=== PATIENT | male | born 1975 | race Caucasian/White ===

== ENCOUNTER 2020-06-13 14:46 | Inpatient (IN) | payer BC ==
--- NOTE | 2020-06-13 16:06 | PCM.HP ---
H&P History of Present Illness - General Date of Service: 06/13/20 Admit Problem/Dx: Admission Diagnosis/Problem Admission Diagnosis/Problem Acute renal failure Source of Information: Patient, Provider - History of Present Illness Initial Comments - Free Text/Narative: 44-year-old gentleman with a history of morbid obesity, type 2 diabetes,sleep apnea on CPAP, hypertension presented to the clinic with nausea. Was found to have acute renal failure and was referred to hospital admission. He says that in the past few month he gained about 50 pounds. developed elevated bsugars 300-500. associated with nausea last week his metformin was increased, added lantus no abd pain no sob, no cp, no fever - Related Data Allergies/Adverse Reactions: Allergies Allergy/AdvReac Type Severity Reaction Status Date / Time No Known Allergies Allergy Verified 11/01/14 15:44 Home Medications: Home Meds Insulin Detemir [Levemir] 10 unit SUBCUT BEDTIME #1 pen 11/03/14 [Rx] metFORMIN [Glucophage] 1,000 mg PO BIDMEALS #60 tablet 11/03/14 [Rx] Docusate Sodium 100 mg PO DAILY 06/13/20 [History] Ferrous Sulfate [Feosol] 325 mg PO DAILY 06/13/20 [History] Levothyroxine [Synthroid] 50 mcg PO ACBREAKFAST 06/13/20 [History] Multivitamin with Minerals [Multiple Vitamin] 1 tab PO DAILY 06/13/20 [History] Phentermine HCl 30 mg PO DAILY 06/13/20 [History] Rosuvastatin Calcium 40 mg PO BEDTIME 06/13/20 [History] Topiramate [Topamax] 50 mg PO BID 06/13/20 [History] hydroCHLOROthiazide [Hydrochlorothiazide] 25 mg PO DAILY 06/13/20 [History] lisinopriL [Lisinopril] 40 mg PO DAILY 06/13/20 [History] methocarbamoL [Methocarbamol] 750 mg PO QID PRN 06/13/20 [History] Past Medical History HEENT History: Reports: Impaired Vision Other HEENT History: contacts Cardiovascular History: Reports: High Cholesterol, Hypertension, SOB on Exertion Respiratory History: Reports: Sleep Apnea, SOB Gastrointestinal History: Reports: None Genitourinary History: Reports: Acute Renal Failure Musculoskeletal History: Reports: Back Pain, Chronic Psychiatric History: Reports: None Endocrine/Metabolic History: Reports: Diabetes, Type II, Hypothyroidism, Obesity/BMI 30+ Hematologic History: Reports: Anemia, Iron Deficiency Oncologic (Cancer) History: Reports: None Dermatologic History: Reports: None - Infectious Disease History Infectious Disease History: Reports: Chicken Pox, Influenza - Past Surgical History Other HEENT Surgeries/Procedures: wisdom teeth Social & Family History - Family History Family Medical History: No Pertinent Family History - Tobacco Use Tobacco Use Status *Q: Former Tobacco User Used Tobacco, but Quit: Yes Month/Year Tobacco Last Used: 03/2000 - Caffeine Use Caffeine Use: Reports: Coffee, Energy Drinks - Recreational Drug Use Recreational Drug Use: No H&P Review of Systems - Review of Systems: Review Of Systems: See Below General: Reports: Malaise, Weakness. Denies: Fever Gastrointestinal: Reports: Diarrhea, Nausea. Denies: Abdominal Pain, Vomiting Genitourinary: Denies: Dysuria Psychiatric: Denies: Confusion Neurological: Reports: Weakness Exam - Exam Exam: See Below - Vital Signs Vital Signs: Last Vital Signs Temp 97.3 F 06/13/20 14:47 Pulse 122 H 06/13/20 14:47 Resp 16 06/13/20 14:47 BP 126/78 06/13/20 14:47 Pulse Ox 98 06/13/20 14:47 Weight: 403 lb 12.8 oz - Exam General: Alert, Oriented, Other (morbidly obese) Neck: Supple Lungs: Clear to Auscultation, Normal Respiratory Effort Cardiovascular: Regular Rate, Regular Rhythm GI/Abdominal Exam: Normal Bowel Sounds, Soft, Non-Tender Extremities: No Pedal Edema Skin: Warm, Dry Neuro Extensive - Mental Status: Alert, Oriented x3 Psychiatric: Alert, Normal Affect, Normal Mood - Patient Data Lab Results Last 24 hrs: Results for RESHMA MAR ( ) as of 06/13/2020 15:46 Ref. Range 06/13/2020 11:22 BUN Latest Ref Range: 7 - 18 mg/dL 66 (H) Creatinine Latest Ref Range: 0.8 - 1.3 mg/dL 2.4 (H) Sodium Latest Ref Range: 136 - 145 mmol/L 131 (L) Potassium Latest Ref Range: 3.5 - 5.1 mmol/L 4.9 Chloride Latest Ref Range: 98 - 107 mmol/L 94 (L) CO2 Latest Ref Range: 21.0 - 32.0 mmol/L 21.3 SERUM GLUCOSE Latest Ref Range: 70 - 99 mg/dL 517 (HH) Calcium Latest Ref Range: 8.5 - 10.1 mg/dL 9.7 ANION GAP Latest Ref Range: 5.0 - 13.0 mmol/L 15.7 (H) GFR Calculated Latest Units: mL/min/1.73 sq m 30 Results for RESHMA MAR ( ) as of 06/13/2020 15:46 Ref. Range 06/13/2020 11:22 WBC Latest Ref Range: 3.60 - 11.00 K/uL 12.78 (H) RBC Latest Ref Range: 4.40 - 5.90 M/uL 5.36 Hemoglobin Latest Ref Range: 13.0 - 18.0 g/dL 14.6 Hematocrit Latest Ref Range: 40.0 - 52.0 % 42.3 MCV Latest Ref Range: 80.0 - 100.0 fL 78.9 (L) MCH Latest Ref Range: 26.0 - 34.0 pg 27.2 MCHC Latest Ref Range: 32.0 - 36.0 g/dL 34.5 RDW Latest Ref Range: 37.0 - 50.0 fL 36.9 (L) Platelets Latest Ref Range: 150 - 440 K/L 324 MPV Latest Ref Range: 8.0 - 13.0 fL 13.0 - Problem List (1) Hyperglycemia SNOMED Code(s): 56166162 ICD Code: R73.9 - HYPERGLYCEMIA, UNSPECIFIED Status: Acute Current Visit: Yes (2) Diarrhea SNOMED Code(s): 87197526 ICD Code: R19.7 - DIARRHEA, UNSPECIFIED Status: Acute Current Visit: Yes (3) Diabetes mellitus SNOMED Code(s): 89766350 ICD Code: E11.9 - TYPE 2 DIABETES MELLITUS WITHOUT COMPLICATIONS Status: Acute Priority: High Current Visit: No Onset Date: 11/01/14 (4) Hypertension SNOMED Code(s): 02976859 ICD Code: I10 - ESSENTIAL (PRIMARY) HYPERTENSION Status: Chronic Priority: High Current Visit: No Problem List Initiated/Reviewed/Updated: Yes Orders Last 24hrs: Active Orders 24 hr Category Date Time Status Admission Status [Patient Status] [ADT] Routine ADT 06/13/20 15:13 Active Regular Diet [DIET] Diet 06/13/20 Dinner Active Assessment/Plan Comment:: 44-year-old gentleman with a history of type 2 diabetes on metformin presented with nausea. Noted to have acute renal failure Likely secondary to dehydration Will hydrate well Hold MICHELLE inhibitor, metformin, hydrochlorothiazide, phentermine Follow electrolytes and renal function Hypertension Hold lisinopril now Well monitor Nausea Might relate to renal failure Well hydrate Symptomatic treatment Diarrhea Check C. difficile Check routine stool culture Diabetes, type II Uncontrolled Increase Levemir Use supplemental insulin as needed Hold metformin Leukocytosis Likely related to nausea Possibly due to diarrhea Check C. difficile Check urine analysis and culture hypothyroidism Treat with Synthroid DVT prophylaxis with subcutaneous heparin
[2020-06-13] MEDS ORDERED: 50% Dextrose in Water 50 ML Syringe IVPUSH PRN (16:12)
[2020-06-13] MEDS ORDERED: Ondansetron 4 MG/2 ML SDV IVPUSH PRN (16:13)
[2020-06-13] MEDS ORDERED: Sodium Chloride 0.9% 10 ML Syringe FLUSH PRN (16:13)
[2020-06-13] MEDS ORDERED: Acetaminophen 325 MG Tab PO PRN (16:13)
[2020-06-13] MEDS ORDERED: Temazepam 15 MG Cap PO PRN (16:13)
[2020-06-13] MEDS ORDERED: Ondansetron 4 MG Tab.DIS PO PRN (16:13)
[2020-06-13] MEDS: Sodium Chloride 0.9% 1,000 ML IV SCH ×2 (16:21→19:55)
[2020-06-13] MEDS ORDERED: Insulin Lispro 100 Units/ML 3 ML Vial SUBCUT ONE ×2 (17:12→18:50)
[2020-06-13] MEDS ORDERED: Glucagon,Human Recombinant 1 MG Vial IM PRN (17:12)
[2020-06-13] MEDS ORDERED: 50% Dextrose in Water 50 ML Syringe IV PRN (17:12)
[2020-06-13] MEDS: Insulin Lispro 100 Units/ML 3 ML Vial SUBCUT SCH ×2 (17:18→21:29)
[2020-06-13] MEDS ORDERED: Sodium Chloride 0.9% 500 ML IV ONE (19:30)
[2020-06-13] MEDS ORDERED: Insulin Glarg,Human.Rec.Analog 100 Unit/ML SUBCUT SCH (21:00)
[2020-06-13] MEDS: Topiramate 25 MG Tab PO SCH (21:35)
[2020-06-13] MEDS: Heparin Sodium 5,000 Units/ML Vial SUBCUT SCH (21:35)
[2020-06-14] MEDS: Sodium Chloride 0.9% 1,000 ML IV SCH ×3 (00:53→11:12)
[2020-06-14 04:25] VITALS: PULSE 81
[2020-06-14] MEDS: Heparin Sodium 5,000 Units/ML Vial SUBCUT SCH (05:47)
[2020-06-14] MEDS ORDERED: Levothyroxine 50 MCG Tab PO SCH (06:00)
[2020-06-14 06:26] LABS: ANION GAP 15.6 mEq/L (7-13)
[2020-06-14] MEDS: Topiramate 25 MG Tab PO SCH (08:55)
[2020-06-14] MEDS ORDERED: Multivitamins,Therapeutic Tab PO SCH (09:00)
[2020-06-14] MEDS ORDERED: Ferrous Sulfate 325 MG Tab PO SCH (09:00)
[2020-06-14] MEDS: Insulin Lispro 100 Units/ML 3 ML Vial SUBCUT SCH (09:04)
--- NOTE | 2020-06-14 11:06 | PCM.DCSUM1 ---
Discharge Summary - Hospital Course Free Text/Narrative:: 44-year-old gentleman with a history of type 2 diabetes on metformin presented with nausea. found to have BSs 500s, JACE with cr. 2,4 Noted to have acute renal failure Likely secondary to dehydration renal failure did not improve wiht hydration (200cc/h and boluses) Hold MICHELLE inhibitor, metformin, hydrochlorothiazide, phentermine cr. upto 3.6 uo: 300cc in the past 12 h bladder scan: no residual Hypertension Hold lisinopril now BP is on the lower side (90s) - given IVF Well monitor Nausea Might relate to renal failure Well hydrate Symptomatic treatment Diarrhea Check C. difficile Check routine stool culture Diabetes, type II Uncontrolled Increase Levemir Use supplemental insulin as needed Hold metformin Leukocytosis Likely related to nausea Possibly due to diarrhea Check C. difficile Check urine analysis and culture hypothyroidism Treat with Synthroid transfer to [facility] for further eval and treatment Diagnosis: Stroke: No - Discharge Data Discharge Date: 06/14/20 Discharge Disposition: DC/Tfer to Acute Hospital 02 Condition: Good - Referral to Home Health Primary Care Physician: Parth Power [employer] SUPERINTENDENT - Discharge Diagnosis/Problem(s) (1) Hyperglycemia SNOMED Code(s): 51429175 ICD Code: R73.9 - HYPERGLYCEMIA, UNSPECIFIED Status: Acute Current Visit: Yes (2) Diarrhea SNOMED Code(s): 93423796 ICD Code: R19.7 - DIARRHEA, UNSPECIFIED Status: Acute Current Visit: Yes (3) Diabetes mellitus SNOMED Code(s): 21919300 ICD Code: E11.9 - TYPE 2 DIABETES MELLITUS WITHOUT COMPLICATIONS Status: Acute Priority: High Current Visit: No Onset Date: 11/01/14 (4) Hypertension SNOMED Code(s): 85629013 ICD Code: I10 - ESSENTIAL (PRIMARY) HYPERTENSION Status: Chronic Priority: High Current Visit: No - Patient Instructions Diet: Diabetic Diet Activity: As Tolerated - Discharge Plan *PRESCRIPTION DRUG MONITORING PROGRAM REVIEWED*: Not Applicable *COPY OF PRESCRIPTION DRUG MONITORING REPORT IN PATIENT MALLIKA: Not Applicable Home Medications: Home Meds Insulin Detemir [Levemir] 10 unit SUBCUT BEDTIME #1 pen 11/03/14 [Rx] Docusate Sodium 100 mg PO DAILY 06/13/20 [History] Ferrous Sulfate [Feosol] 325 mg PO DAILY 06/13/20 [History] Levothyroxine [Synthroid] 50 mcg PO ACBREAKFAST 06/13/20 [History] Multivitamin with Minerals [Multiple Vitamin] 1 tab PO DAILY 06/13/20 [History] Topiramate [Topamax] 50 mg PO BID 06/13/20 [History] Oxygen Therapy Mode: Room Air - Discharge Summary/Plan Comment DC Time >30 min.: Yes (arranging transfer, d/w dr. Roy) - General Info Date of Service: 06/14/20 - Review of Systems General: Reports: Weakness. Denies: Fever Pulmonary: Denies: Shortness of Breath Cardiovascular: Denies: Chest Pain, Edema Gastrointestinal: Reports: Nausea Genitourinary: Denies: Hematuria Neurological: Denies: Confusion - Patient Data Vitals - Most Recent: Last Vital Signs Temp 98 F 06/14/20 04:00 Pulse 81 06/14/20 04:00 Resp 20 06/14/20 04:00 BP 91/58 L 06/14/20 04:00 Pulse Ox 97 06/14/20 04:00 Weight - Most Recent: 403 lb 12.8 oz I&O - Last 24 hours: Intake & Output 06/13/20 06/14/20 06/14/20 22:59 06:59 14:59 Intake Total 1275 2240 Output Total 150 200 Balance 1125 2040 Lab Results - Last 24 hrs: Laboratory Results - last 24 hr 06/13/20 06/13/20 06/13/20 Range/Units 16:03 16:46 17:00 WBC (5.0-10.0) 10^3/uL RBC (4.6-6.2) 10^6/uL Hgb (14.0-18.0) g/dL Hct (40.0-54.0) % MCV (80-100) fL MCH (27.0-34.0) pg MCHC (33.0-35.0) g/dL Plt Count (150-450) 10^3/uL Neut % (Auto) (42.2-75.2) % Lymph % (Auto) (20.5-50.1) % [place] % (Auto) (2-8) % Eos % (Auto) (1.0-3.0) % Baso % (Auto) (0.0-1.0) % Sodium (136-145) mmol/L Potassium (3.5-5.1) mmol/L Chloride (98-107) mmol/L Carbon Dioxide (21-32) mmol/L Anion Gap (7-13) mEq/L BUN (7-18) mg/dL Creatinine (0.70-1.30) mg/dL Est Cr Clr Drug Dosing mL/min Estimated GFR (MDRD) Glucose 514 H* (74-99) mg/dL POC Glucose > 500 H* (70-105) mg/dl Calcium (8.5-10.1) mg/dL Total Bilirubin (0.2-1.0) mg/dL Direct Bilirubin (0.0-0.2) mg/dL Indirect Bilirubin AST (15-37) U/L ALT (16-63) U/L Alkaline Phosphatase (46-116) U/L Total Protein (6.4-8.2) g/dL Albumin (3.4-5.0) g/dL Globulin Albumin/Globulin Ratio Urine Color (YELLOW) Urine Appearance (CLEAR) Urine pH (5.0-9.0) Ur Specific [place] (1.005-1.030) Urine Protein (NEGATIVE) Urine Glucose (UA) (NEGATIVE) Urine Ketones (NEGATIVE) Urine Occult Blood (NEGATIVE) Urine Nitrite (NEGATIVE) Urine Bilirubin (NEGATIVE) Urine Urobilinogen (0.2-1.0) mg/dL Ur Leukocyte Esterase (NEGATIVE) Urine RBC /HPF Urine WBC (0-5/HPF) /HPF Ur Epithelial Cells (NOT SEEN) /HPF Amorphous Sediment (NOT SEEN) /HPF Urine Bacteria (0-FEW/HPF) /HPF Urine Mucus (NOT SEEN) /LPF SARS-CoV-2 RNA (ARNIE) Negative (NEGATIVE) 06/13/20 06/13/20 06/13/20 Range/Units 17:20 18:44 19:22 WBC (5.0-10.0) 10^3/uL RBC (4.6-6.2) 10^6/uL Hgb (14.0-18.0) g/dL Hct (40.0-54.0) % MCV (80-100) fL MCH (27.0-34.0) pg MCHC (33.0-35.0) g/dL Plt Count (150-450) 10^3/uL Neut % (Auto) (42.2-75.2) % Lymph % (Auto) (20.5-50.1) % [place] % (Auto) (2-8) % Eos % (Auto) (1.0-3.0) % Baso % (Auto) (0.0-1.0) % Sodium (136-145) mmol/L Potassium (3.5-5.1) mmol/L Chloride (98-107) mmol/L Carbon Dioxide (21-32) mmol/L Anion Gap (7-13) mEq/L BUN (7-18) mg/dL Creatinine (0.70-1.30) mg/dL Est Cr Clr Drug Dosing mL/min Estimated GFR (MDRD) Glucose (74-99) mg/dL POC Glucose > 500 H* 487 H* (70-105) mg/dl Calcium (8.5-10.1) mg/dL Total Bilirubin (0.2-1.0) mg/dL Direct Bilirubin (0.0-0.2) mg/dL Indirect Bilirubin AST (15-37) U/L ALT (16-63) U/L Alkaline Phosphatase (46-116) U/L Total Protein (6.4-8.2) g/dL Albumin (3.4-5.0) g/dL Globulin Albumin/Globulin Ratio Urine Color Yellow (YELLOW) Urine Appearance Clear (CLEAR) Urine pH 5.0 (5.0-9.0) Ur Specific [place] >= 1.030 (1.005-1.030) Urine Protein Negative (NEGATIVE) Urine Glucose (UA) 500 H (NEGATIVE) Urine Ketones Trace H (NEGATIVE) Urine Occult Blood Negative (NEGATIVE) Urine Nitrite Negative (NEGATIVE) Urine Bilirubin Small H (NEGATIVE) Urine Urobilinogen 0.2 (0.2-1.0) mg/dL Ur Leukocyte Esterase Negative (NEGATIVE) Urine RBC 0-5 /HPF Urine WBC 0-5 (0-5/HPF) /HPF Ur Epithelial Cells Rare (NOT SEEN) /HPF Amorphous Sediment Rare (NOT SEEN) /HPF Urine Bacteria Rare (0-FEW/HPF) /HPF Urine Mucus Rare (NOT SEEN) /LPF SARS-CoV-2 RNA (ARNIE) (NEGATIVE) 06/13/20 06/14/20 06/14/20 Range/Units 21:08 05:50 05:50 WBC 13.9 H (5.0-10.0) 10^3/uL RBC 4.71 (4.6-6.2) 10^6/uL Hgb 12.6 L (14.0-18.0) g/dL Hct 38.1 L (40.0-54.0) % MCV 80.9 (80-100) fL MCH 26.8 L (27.0-34.0) pg MCHC 33.1 (33.0-35.0) g/dL Plt Count 274 (150-450) 10^3/uL Neut % (Auto) 72.1 (42.2-75.2) % Lymph % (Auto) 18.6 L (20.5-50.1) % [place] % (Auto) 8.9 H (2-8) % Eos % (Auto) 0.2 L (1.0-3.0) % Baso % (Auto) 0.2 (0.0-1.0) % Sodium 132 L (136-145) mmol/L Potassium 4.6 (3.5-5.1) mmol/L Chloride 97 L (98-107) mmol/L Carbon Dioxide 24 (21-32) mmol/L Anion Gap 15.6 H (7-13) mEq/L BUN 77 H (7-18) mg/dL Creatinine 3.63 H (0.70-1.30) mg/dL Est Cr Clr Drug Dosing 27.95 mL/min Estimated GFR (MDRD) 18 Glucose 292 H (74-99) mg/dL POC Glucose 347 H (70-105) mg/dl Calcium 8.9 (8.5-10.1) mg/dL Total Bilirubin 0.6 (0.2-1.0) mg/dL Direct Bilirubin 0.1 (0.0-0.2) mg/dL Indirect Bilirubin 0.5 AST 12 L (15-37) U/L ALT 25 (16-63) U/L Alkaline Phosphatase 70 (46-116) U/L Total Protein 6.8 (6.4-8.2) g/dL Albumin 3.2 L (3.4-5.0) g/dL Globulin 3.6 Albumin/Globulin Ratio 0.89 Urine Color (YELLOW) Urine Appearance (CLEAR) Urine pH (5.0-9.0) Ur Specific [place] (1.005-1.030) Urine Protein (NEGATIVE) Urine Glucose (UA) (NEGATIVE) Urine Ketones (NEGATIVE) Urine Occult Blood (NEGATIVE) Urine Nitrite (NEGATIVE) Urine Bilirubin (NEGATIVE) Urine Urobilinogen (0.2-1.0) mg/dL Ur Leukocyte Esterase (NEGATIVE) Urine RBC /HPF Urine WBC (0-5/HPF) /HPF Ur Epithelial Cells (NOT SEEN) /HPF Amorphous Sediment (NOT SEEN) /HPF Urine Bacteria (0-FEW/HPF) /HPF Urine Mucus (NOT SEEN) /LPF SARS-CoV-2 RNA (ARNIE) (NEGATIVE) 06/14/20 Range/Units 07:52 WBC (5.0-10.0) 10^3/uL RBC (4.6-6.2) 10^6/uL Hgb (14.0-18.0) g/dL Hct (40.0-54.0) % MCV (80-100) fL MCH (27.0-34.0) pg MCHC (33.0-35.0) g/dL Plt Count (150-450) 10^3/uL Neut % (Auto) (42.2-75.2) % Lymph % (Auto) (20.5-50.1) % [place] % (Auto) (2-8) % Eos % (Auto) (1.0-3.0) % Baso % (Auto) (0.0-1.0) % Sodium (136-145) mmol/L Potassium (3.5-5.1) mmol/L Chloride (98-107) mmol/L Carbon Dioxide (21-32) mmol/L Anion Gap (7-13) mEq/L BUN (7-18) mg/dL Creatinine (0.70-1.30) mg/dL Est Cr Clr Drug Dosing mL/min Estimated GFR (MDRD) Glucose (74-99) mg/dL POC Glucose 324 H (70-105) mg/dl Calcium (8.5-10.1) mg/dL Total Bilirubin (0.2-1.0) mg/dL Direct Bilirubin (0.0-0.2) mg/dL Indirect Bilirubin AST (15-37) U/L ALT (16-63) U/L Alkaline Phosphatase (46-116) U/L Total Protein (6.4-8.2) g/dL Albumin (3.4-5.0) g/dL Globulin Albumin/Globulin Ratio Urine Color (YELLOW) Urine Appearance (CLEAR) Urine pH (5.0-9.0) Ur Specific [place] (1.005-1.030) Urine Protein (NEGATIVE) Urine Glucose (UA) (NEGATIVE) Urine Ketones (NEGATIVE) Urine Occult Blood (NEGATIVE) Urine Nitrite (NEGATIVE) Urine Bilirubin (NEGATIVE) Urine Urobilinogen (0.2-1.0) mg/dL Ur Leukocyte Esterase (NEGATIVE) Urine RBC /HPF Urine WBC (0-5/HPF) /HPF Ur Epithelial Cells (NOT SEEN) /HPF Amorphous Sediment (NOT SEEN) /HPF Urine Bacteria (0-FEW/HPF) /HPF Urine Mucus (NOT SEEN) /LPF SARS-CoV-2 RNA (ARNIE) (NEGATIVE) Med Orders - Current: Current Medications Acetaminophen (Tylenol) 650 mg PO Q4H PRN PRN Reason: Pain (Mild 1-3)/fever Dextrose/Water (Dextrose 50% In Water) 25 ml IVPUSH ASDIRECTED PRN PRN Reason: Hypoglycemia BS<70 Dextrose/Water (Dextrose 50% In Water) 50 ml IV ASDIRECTED PRN PRN Reason: Hypoglycemia Ferrous Sulfate (Ferrous Sulfate) 325 mg PO DAILY [facility] Last Admin: 06/14/20 08:54 Dose: 325 mg Documented by: Glucagon (Glucagen) 1 mg IM ASDIRECTED PRN PRN Reason: Hypoglycemia Heparin Sodium (Porcine) (Heparin Sodium) 5,000 units SUBCUT Q8HR [facility] Last Admin: 06/14/20 05:47 Dose: 5,000 units Documented by: Sodium Chloride (Normal Saline) 1,000 mls @ 200 mls/hr IV ASDIRECTED [facility] Last Admin: 06/14/20 05:55 Dose: 200 mls/hr Documented by: Insulin Glargine (Lantus) 20 unit SUBCUT BEDTIME [facility] Last Admin: 06/13/20 21:32 Dose: 20 units Documented by: Insulin Human Lispro (Humalog) 0 unit SUBCUT WITHMEALSANDBED [facility]; Protocol Last Admin: 06/14/20 09:04 Dose: 12 units Documented by: Levothyroxine Sodium (Synthroid) 50 mcg PO ACBREAKFAST [facility] Last Admin: 06/14/20 05:45 Dose: 50 mcg Documented by: Multivitamins (Thera) 1 each PO DAILY [facility] Last Admin: 06/14/20 08:55 Dose: 1 each Documented by: Ondansetron HCl (Zofran Odt) 4 mg PO Q6H PRN PRN Reason: nausea, able to take PO Last Admin: 06/14/20 08:54 Dose: 4 mg Documented by: Ondansetron HCl (Zofran) 4 mg IVPUSH Q6H PRN PRN Reason: Nausea/Vomiting Last Admin: 06/13/20 19:42 Dose: 4 mg Documented by: Sodium Chloride (Saline Flush) 10 ml FLUSH ASDIRECTED PRN PRN Reason: Keep Vein Open Temazepam (Restoril) 15 mg PO BEDTIME PRN PRN Reason: Sleep Topiramate (Topamax) 50 mg PO BID [facility] Last Admin: 06/14/20 08:55 Dose: 50 mg Documented by: Discontinued Medications Sodium Chloride (Normal Saline) 500 mls @ 999 mls/hr IV BOLUS ONE Stop: 06/13/20 20:00 Last Admin: 06/13/20 19:30 Dose: Not Given Documented by: Insulin Human Lispro (Humalog) 20 unit SUBCUT ONETIME ONE Stop: 06/13/20 17:13 Last Admin: 06/13/20 17:20 Dose: 20 units Documented by: Insulin Human Lispro (Humalog) 20 unit SUBCUT ONETIME ONE Stop: 06/13/20 18:51 Last Admin: 06/13/20 19:07 Dose: 20 units Documented by: - Exam General: Reports: Alert, Oriented Neck: Reports: Supple Lungs: Reports: Clear to Auscultation, Normal Respiratory Effort Cardiovascular: Reports: Regular Rate, Regular Rhythm GI/Abdominal Exam: Normal Bowel Sounds, Soft, Non-Tender Extremities: No Pedal Edema
[2020-06-14 12:07] VITALS: BP 97/58
== END 2020-06-14 11:15 | DRG 469 ==
LOC: DL.MS 14:46
PROVIDERS: ADMIT Internal Medicine; ATTEND Internal Medicine
DX: N17.9 Acute kidney failure, unspecified (principal); E86.0 Dehydration; I10 Essential (primary) hypertension; R19.7 Diarrhea, unspecified; E03.9 Hypothyroidism, unspecified; E11.65 Type 2 diabetes mellitus with hyperglycemia; E66.01 Morbid (severe) obesity due to excess calories; G47.30 Sleep apnea, unspecified; H54.7 Unspecified visual loss; E78.00 Pure hypercholesterolemia, unspecified; G89.29 Other chronic pain; M54.9 Dorsalgia, unspecified; D50.9 Iron deficiency anemia, unspecified; Z20.822 Contact with and (suspected) exposure to COVID-19; Z79.890 Hormone replacement therapy; Z79.4 Long term (current) use of insulin; Z79.899 Other long term (current) drug therapy; Z99.81 Dependence on supplemental oxygen; Z87.891 Personal history of nicotine dependence; Z68.43 Body mass index [BMI] 50.0-59.9, adult
CPT/HCPCS: 36415; 80048; 80076; 81001; 82947; 82962; 85025; 87086; 99221; 99239; A9270-GY; J1644; J1815-GY; J2405; J7030; U0002

== ENCOUNTER 2020-07-12 05:47 | Day surgery (SDC) | payer BC ==
[2020-07-12] MEDS ORDERED: fentaNYL 100 MCG/2 ML SDV IV ONE ×3 (05:48→06:55)
[2020-07-12] MEDS ORDERED: Midazolam 1 MG/ML 2 ML SDV IV ONE ×3 (05:48→06:56)
[2020-07-12] MEDS ORDERED: Dextrose 5%-0.45% NaCl 1,000 ML IV SCH (06:10)
[2020-07-12] MEDS ORDERED: Midazolam 1 MG/ML 2 ML SDV ONE (06:12)
[2020-07-12] MEDS ORDERED: fentaNYL 100 MCG/2 ML SDV ONE (06:12)
[2020-07-12 07:05] VITALS: BP 171/113; PULSE 101
--- NOTE | 2020-07-12 07:28 | OR ---
DATE: 07/12/2020 PROCEDURE: Esophagogastroduodenoscopy and multiple pinch biopsies. INSTRUMENT USED: [id number]-[id number] Olympus video panendoscope. PREMEDICATIONS: No oral or topical anesthesia used. Fentanyl 100 mcg intravenous, Versed 2 mg intravenous. Nasal O2 cannula. The procedure was done under pulse oximetry, BP recording, and monitoring engineer. INDICATION: The patient with longstanding heartburn and associated chest pain, unexplained and not responsive to medical measures, on high-dose PPI. Esophagogastroduodenoscopy is performed for detection of any active erosive lesions, Strong esophagus and/or malignancy also under consideration, H pylori status to be determined, endoscopic hemostasis therapy if needed. DESCRIPTION OF PROCEDURE: The scope was passed with ease. Adequate visualization of the esophagus was made from proximal to distal areas. No upper esophageal lesions were identified. No distal esophageal stricture. No uphill or downhill esophageal varices. No Evelyn-Watkins tear. No evidence of erosive esophagitis by O[place]man criteria. No esophageal polyp or tumor mass identified. Z-line was seen at around 45 cm distal to the oral verge. No proximal gastric varices noted. Gastric fundus examination by retroflexion showed no polypoid lesions. No gastric ulcer, malignant mass, or vascular ectasia identified. Scattered gastric antral erosions were noted without bleeding from them. Duodenal bulb showed no ulcer. Visualized second part of the duodenum was unremarkable. Multiple pinch biopsies were taken from the gastric antrum and proximal body and sent for PyloriTek test for H pylori, and if negative in an hour, the tissue is to be sent for histopathology. No bleeding was noted from any of the visualized areas at the completion of examination. Photographs were taken of the duodenal bulb, gastric antrum, fundus, and distal esophagus. IMPRESSION: Gastric antral erosions. The patient tolerated the procedure well. [facility] /[id number]
== END 2020-07-12 09:08 | disposition home or self-care (01) ==
LOC: DL.ENDO 05:47
PROVIDERS: ATTEND Internal Medicine Gastroenterology
DX: K25.9 Gastric ulcer, unspecified as acute or chronic, without hemorrhage or perforation (principal); E66.01 Morbid (severe) obesity due to excess calories; I12.9 Hypertensive chronic kidney disease with stage 1 through stage 4 chronic kidney disease, or unspecified chronic kidney disease; E11.22 Type 2 diabetes mellitus with diabetic chronic kidney disease; E78.5 Hyperlipidemia, unspecified; D64.9 Anemia, unspecified; G47.33 Obstructive sleep apnea (adult) (pediatric); N18.9 Chronic kidney disease, unspecified; Z68.43 Body mass index [BMI] 50.0-59.9, adult
CPT/HCPCS: 87077; J2250; J3010; J7042

== ENCOUNTER 2022-07-27 06:22 | Day surgery (SDC) | payer BC ==
[~2022-07-27 06:22] MED LIST: Sodium Chloride 0.9% 10 ML Syringe FLUSH PRN
[2022-07-27] MEDS ORDERED: Midazolam 1 MG/ML 2 ML SDV IV ONE (06:23)
[2022-07-27] MEDS ORDERED: fentaNYL 100 MCG/2 ML SDV IV ONE (06:23)
[2022-07-27] MEDS: Dextrose 5%-0.45% NaCl 1,000 ML IV SCH (06:45)
[2022-07-27] MEDS ORDERED: Midazolam 1 MG/ML 2 ML SDV ONE (07:31)
[2022-07-27] MEDS ORDERED: fentaNYL 100 MCG/2 ML SDV ONE (07:32)
[2022-07-27] MEDS: fentaNYL 100 MCG/2 ML SDV IV ONE ×4 (07:38→07:55)
[2022-07-27] MEDS: Midazolam 1 MG/ML 2 ML SDV IV ONE ×6 (07:39→07:48)
[2022-07-27] MEDS ORDERED: Sodium Chloride 0.9% 10 ML Syringe FLUSH SCH (09:00)
[2022-07-27 09:54] VITALS: BP 130/69; PULSE 92
== END 2022-07-27 09:30 | disposition home or self-care (01) ==
LOC: DL.ENDO 06:22
PROVIDERS: ATTEND Internal Medicine Gastroenterology
DX: K62.1 Rectal polyp (principal); D50.9 Iron deficiency anemia, unspecified; I12.9 Hypertensive chronic kidney disease with stage 1 through stage 4 chronic kidney disease, or unspecified chronic kidney disease; N18.9 Chronic kidney disease, unspecified; E11.22 Type 2 diabetes mellitus with diabetic chronic kidney disease; E66.09 Other obesity due to excess calories; E78.5 Hyperlipidemia, unspecified; G47.33 Obstructive sleep apnea (adult) (pediatric); K21.9 Gastro-esophageal reflux disease without esophagitis; Z68.44 Body mass index [BMI] 60.0-69.9, adult
CPT/HCPCS: J2250; J3010; J7042

== ENCOUNTER 2022-10-01 05:35 | Day surgery (SDC) | payer BC ==
[~2022-10-01 05:35] MED LIST changes: +Dextrose 5%-0.45% NaCl 1,000 ML IV SCH; +Sodium Chloride 0.9% 10 ML Syringe FLUSH SCH
[2022-10-01] MEDS ORDERED: Dextrose 5%-0.45% NaCl 1,000 ML IV SCH (06:00)
[2022-10-01] MEDS ORDERED: fentaNYL 100 MCG/2 ML SDV ONE (06:53)
[2022-10-01] MEDS ORDERED: Midazolam 1 MG/ML 2 ML SDV ONE (06:53)
[2022-10-01] MEDS ORDERED: fentaNYL 100 MCG/2 ML SDV IV ONE ×2 (06:56)
[2022-10-01] MEDS ORDERED: Midazolam 1 MG/ML 2 ML SDV IV ONE ×4 (06:57→07:01)
[2022-10-01 08:25] VITALS: BP 125/61; PULSE 78
== END 2022-10-01 08:44 | disposition home or self-care (01) ==
LOC: DL.ENDO 05:35
PROVIDERS: ATTEND Internal Medicine Gastroenterology
DX: K29.50 Unspecified chronic gastritis without bleeding (principal); D50.0 Iron deficiency anemia secondary to blood loss (chronic); E11.9 Type 2 diabetes mellitus without complications; E66.09 Other obesity due to excess calories; Z68.44 Body mass index [BMI] 60.0-69.9, adult; Z79.4 Long term (current) use of insulin
CPT/HCPCS: 87077; J2250; J3010; J7042